=== PATIENT | male | born 1975 | race Caucasian/White ===

== ENCOUNTER 2016-10-23 13:42 | Emergency (ER) | payer BC, OTHER ==
[~2016-10-23] VITALS: Ht 172.7 cm; Wt 81.4 kg
[2016-10-23 13:49] VITALS: BP 125/73; PULSE 72; TEMP 36.6; O2SAT 96; Ht 172.7 cm; Wt 81.4 kg
--- NOTE | 2016-10-23 14:04 | EMERGENCY ROOM VISIT NOTE ---
ED Visit Note First contact with patient: 13:52 CHIEF COMPLAINT: Foreign body in left eye HISTORY OF PRESENT ILLNESS: This 41-year-old male presents the ER with chief complaint of a small piece of plaster in his left eye. The patient states that he was removing plaster and felt something go into his eye. He states he can see a small white foreign body but was unable to get it out. The patient denies any visual changes. The patient denies any eye pain. He states it is just uncomfortable. REVIEW OF SYSTEMS: 6 system review was performed and was negative unless stated otherwise in history of present illness. PMH: The patient is healthy; there is no significant medical or surgical history. SOCIAL HISTORY: Patient lives with his family. PHYSICAL EXAM: Vital Signs: Were reviewed Reviewed Nurse's notes. GENERAL: 41- year-old white male appears in no acute distress. MENTAL Status: Alert and oriented 3. EYES: Visual acuity was 20/20 both eyes without correction. The pupils are round, equal, and react to light. EOMs are full. There is discharge of clear tears from the injured eye which is injected. There is a visible foreign body noted on the medial aspect of the conjunctiva. This was removed with a Q-tip without any difficulty. . The cornea was clear and no hyphema was seen. Slit lamp exam was performed. No Fluorescein uptake was observed with ultraviolet light . EMERGENCY DEPARTMENT COURSE: The fluorescein was irrigated away and the patient was discharged home in stable condition. 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 If you experience any signs of infection such as purulent drainage or your eye being matted shut in the morning follow-up with your family doctor for antibiotic eyedrops. Current/Historical Medications Miscellaneous Medications None (Patient States No Home Meds) Allergies Coded Allergies: No Known Allergies (Unverified , 05/08/10) Vital Signs Date Time Temp Pulse Resp B/P (MAP) Pulse Ox O2 Delivery O2 Flow Rate FiO2 10/23/16 13:49 36.6 72 18 125/73 96 Room Air Departure Information Referrals No Doctor, Assigned (PCP) Patient Instructions My [facility]
== END 2016-10-23 14:10 | disposition home or self-care (01) ==
LOC: C.EDB 13:43 → C.EDD 14:10
DX: T15.92XA Foreign body on external eye, part unspecified, left eye, initial encounter (principal); X58.XXXA Exposure to other specified factors, initial encounter